=== PATIENT | male | born 1950 | race Caucasian/White ===

== ENCOUNTER 2021-12-08 04:34 | Day surgery (SDC) | payer OTHER ==
[2021-12-05 16:38] VITALS: BMI 29.2
[2021-12-08] MEDS ORDERED: DEXAMETHASONE SOD PHOSPHATE 4 MG/1 ML VIAL ONE (07:10)
[2021-12-08] MEDS ORDERED: ONDANSETRON 4 MG/2 ML VIAL ONE (07:10)
[2021-12-08] MEDS ORDERED: KETOROLAC TROMETHAMINE 30 MG/1 ML VIAL ONE (07:10)
[2021-12-08] MEDS ORDERED: LIDOCAINE HCL 2% 100 MG/5 ML DISP.SYRIN ONE (07:10)
[2021-12-08] MEDS ORDERED: MIDAZOLAM HCL 2 MG/2 ML SINGLE DOSE VIAL ONE (07:11)
[2021-12-08] MEDS ORDERED: PROPOFOL 20 ML ONE ×2 (07:11→08:12)
[2021-12-08] MEDS ORDERED: BUPIVACAINE HCL/PF 0.5% (5MG/ML) 10 ML VIAL ONE (07:14)
[2021-12-08] MEDS ORDERED: LIDOCAINE HCL 1%, 10 MG/ML (20ML VIAL) ONE (07:14)
[2021-12-08] MEDS ORDERED: ceFAZolin SODIUM 1 GM VIAL IVPB ONE (08:07)
[2021-12-08] MEDS ORDERED: ceFAZolin SODIUM 1 GM VIAL ONE ×2 (08:13)
[2021-12-08] MEDS ORDERED: BUPIVACAINE HCL/PF 0.5% (5 MG/ML) 30 ML VIAL IJ ONE (08:28)
[2021-12-08] MEDS ORDERED: LIDOCAINE HCL 1%, 10 MG/ML (20ML VIAL) NR ONE (08:28)
[2021-12-08] MEDS ORDERED: LACTATED RINGERS SOLUTION 1,000 ML IV SCH (09:00)
[2021-12-08 10:44] VITALS: BP 133/89; PULSE 79; TEMP 97.9
== END 2021-12-08 10:30 | disposition home or self-care (01) ==
LOC: JASU-SURG 04:34
PROVIDERS: ATTEND Orthopaedic Surgery
PROC: 0JBJ0ZZ Excision of Right Hand Subcutaneous Tissue and Fascia, Open Approach (ICD-10-PCS; principal; 2021-12-08 08:00)
DX: D21.11 Benign neoplasm of connective and other soft tissue of right upper limb, including shoulder (principal)
CPT/HCPCS: 88307-TC; 94760